=== PATIENT | male | born 1950 | race American Indian/Alaskan Native ===

== ENCOUNTER 2016-09-24 20:57 | Emergency (ER) | payer OTHER ==
[~2016-09-24] VITALS: Ht 182.9 cm; Wt 90.7 kg
[2016-09-24 20:57] VITALS: BP 136/79; PULSE 100; RESP 19; TEMP 98.2; O2SAT 97
[2016-09-24] MEDS ORDERED: GLUXR500 PO (21:18)
[2016-09-24] MEDS ORDERED: TRAM50TA92 PO (21:19)
[2016-09-24] MEDS ORDERED: LISI20TA PO (21:19)
[2016-09-24 22:15] VITALS: BP 127/71; PULSE 82; RESP 16; TEMP 98; O2SAT 99
== END 2016-09-24 22:15 | disposition home or self-care (01) ==
LOC: SED 20:57
DX: I83.91 Asymptomatic varicose veins of right lower extremity (principal); R03.0 Elevated blood-pressure reading, without diagnosis of hypertension; M19.90 Unspecified osteoarthritis, unspecified site
CPT/HCPCS: 99283